=== PATIENT | male | born 1990 | race Caucasian/White ===

== ENCOUNTER → 2017-08-25 | Emergency (ER) | payer OTHER ==
[~2017-08-25] VITALS: Ht 177.8 cm; Wt 90.7 kg
[~2017-08-25] MED LIST: CIPRO500 MG PO; CIPROFLOXACIN500 MG PO; FIBER350 GM; HYDROCODON-ACE1 EA11 PO; IBUPROFEN600 MG PO; LOMOTIL TABLET1 EACH PO; METRONIDAZOLE500 MG PO; NORCO 5-325 TA1 EACH PO; OMEPRAZOLE20 MG PO; PERCOCET 7.5-31 EACH PO; PHENADOZ25 MG PR; PROMETHAZINE HC25 M1 PO; PROTONIX40 MG PO; REGLAN10 MG PO; SOMA350 MG PO; TRAMADOL HCL50 MG PO; ZOFRAN ODT4 MG SL
== END ==
LOC: ED 04:48
DX: K52.9 Noninfective gastroenteritis and colitis, unspecified (principal); Z87.891 Personal history of nicotine dependence; Z90.49 Acquired absence of other specified parts of digestive tract; Z90.89 Acquired absence of other organs; Z79.899 Other long term (current) drug therapy
CPT/HCPCS: 80053; 85025; 96361; 96374; 96375; 99283; J1170; J2405; J7030

== ENCOUNTER 2017-12-27 05:45 | Day surgery (SDC) | payer OTHER ==
[~2017-12-27] VITALS: Ht 177.8 cm; Wt 92.5 kg
--- NOTE | 2017-12-27 08:16 | NUR ---
12/27/17 0816 Loyda Castillo 0801 PT ARRIVED IN PACU WITH ORAL AIRWAY IN PLACE. ANESTHESIA AT BEDSIDE REMOVING AIRWAY AND SUCTIONING OUT MOUTH. 0805 PT AWAKE TALKING NON-STOP TO STAFF. NO C/O'S PAIN. 0816 C/O R HAND PAIN 03/07.
--- NOTE | 2017-12-27 09:09 | NUR ---
PATIENT ON ROOM AIR WITH SATS 97%. PATIENT UP TO AMBULATE INDEPENDANTLY TO BATHROOM TO VOID. PATIENT TOLERATED P.O. INTAKE WELL, GIVEN 100MG TRAMADOL FOR 6/10 RIGHT HAND PAIN. HAND IS ELEVATED ON PILLOW WITH ICE.
--- NOTE | 2017-12-27 10:35 | NUR ---
PATIENT MET DISCHAGE PARAMETERS, DISCHARGE PAPERS GIVEN/UNDERSTOOD. PATIENT AMBULATED WITH NURSE TO FRONT DOOR. MOM TRANSPORTED PATIENT HOME.
--- NOTE | 2017-12-27 10:43 | NUR ---
IN TO SEE PT, PT STATES HE IS READY TO GO HOME. DR. ALEMAN PREVIOUSLY IN ROOM, NO FURTHER QUESTION. IV DC'D. PT DRESSED WITH MOTHER AT BEDSIDE, TOLERATED WELL. PT AMBULATED OUT OF DEPARTMENT WITH RN AND MOTHER. TOLERATED WELL.
--- NOTE | 2017-12-29 07:13 | OR ---
[facility] [address] [facility] [place], [place] [address] Signed DATE OF OPERATION: 12/27/2017 SURGEON: Cirilo Heredia MD PREOPERATIVE DIAGNOSIS: Painful retained hardware, right 4th metacarpal. POSTOPERATIVE DIAGNOSIS: Painful retained hardware, right 4th metacarpal. PROCEDURE: Hardware removal, right 4th metacarpal plate and screws. ANESTHESIA: General. SPECIMENS AND COMPLICATIONS: There were no specimens or complications. TOURNIQUET TIME: About 20 minutes. The hardware was processed and given to the patient per his request. WHAT WAS DONE: The patient was taken to the operating room. After anesthesia was induced and airway secured, the patient was positioned, prepped and draped in a routine sterile fashion. Using the old scar as a guide, a dorsal incision was made through skin only. Subcutaneous tissue was bluntly spread. The extensor tendon was identified and retracted in an ulnar direction. The plate was then exposed using the dental pick tool, each of the screws was backed out without any difficulty and the plate was removed. The screw holes were gently curetted. The wound was irrigated and then closed in a standard fashion. A sterile dressing was applied. The patient was awakened and taken to the recovery room where he arrived in stable condition. Counts were correct and antibiotic protocols were followed. Cirilo Heredia MD Electronically Signed By: CIRILO HEREDIA MD 12/29/17 0713 PATIENT NAME: CAROLA COFFMAN OPERATIVE REPORT DATE OF : 89 REPORT #: [id number] PHYSICIAN: CIRILO HEREDIA MD PCP: JESSE CAPUTO PAC REPORT IS CONFIDENTIAL AND NOT TO BE RELEASED WITHOUT AUTHORIZATION [address] [place] [address] Signed [facility] /[id number] Copies: ~ Electronically Signed By: CIRILO HEREDIA MD 12/29/17 0713 PATIENT NAME: CAROLA COFFMAN OPERATIVE REPORT DATE OF : [birth year] REPORT #: [id number] PHYSICIAN: CIRILO HEREDIA MD PCP: JESSE CAPUTO PAC REPORT IS CONFIDENTIAL AND NOT TO BE RELEASED WITHOUT AUTHORIZATION
== END 2017-12-27 10:35 | disposition home or self-care (01) ==
LOC: DS 05:45 → OPS 05:45 → DS 06:45 → OPS 10:35
PROVIDERS: Orthopaedic Surgery
PROC: 0PPP04Z Removal of Internal Fixation Device from Right Metacarpal, Open Approach (ICD-10-PCS; principal; 2017-12-27 06:45)
DX: T84.84XA Pain due to internal orthopedic prosthetic devices, implants and grafts, initial encounter (principal); J45.909 Unspecified asthma, uncomplicated; F17.200 Nicotine dependence, unspecified, uncomplicated; Z79.899 Other long term (current) drug therapy
CPT/HCPCS: 01820; 94640; J0690; J1100; J1885; J2250; J2405; J2704; J3010; J7120

== ENCOUNTER → 2019-08-15 | Emergency (ER) | payer OTHER ==
[~2019-08-15] VITALS: Ht 177.8 cm; Wt 92.5 kg
[~2019-08-15] MED LIST changes: +NEOMYCIN-POLYMY10 ML OTIC; +PAIN RELIEF500 M1 PO; +VIRTUSSIN AC W473 ML PO
--- OUTSIDE RECORDS SUMMARY | ~2019-08-15 | XMS | Encounter Summary ---
Demographics + + + | Address | [address] | | | [place] [address] | + + + | Home Phone | | + + + | Preferred Language | Unknown | + + + | Marital Status | Single | + + + | Oriental Orthodox Affiliation | Unknown | + + + | Race | Unknown | + + + | Ethnic Group | Unknown | + + + Author + + + | Author | [facility] | | | and Ghulamana | + + + | Organization | [facility] | | | and Ghulamana | + + + | Address | Unknown | + + + | Phone | Unavailable | + + + Support + + + + + | Name | Relationship | Address | Phone | + + + + + | Amina Chacon | CHARLENE | [place] | | | | | [address] | | + + + + + Care Team Providers + +------+ + | Care Hedis Nurse Name | Role | Phone | + +------+ + | Cyn Lim | PCP | | | PA | | | + +------+ + Reason for Visit + + + | Reason | Comments | + + + | Appointment | Patient is a no show for today | + + + Encounter Details +--------+ + + + + | Date | Type | Department | Care Team | Description | +--------+ + + + + | 10/26/ | Telephone | [facility] | Tom Mullen MD | Appointment (Patient | | 2018 | | GASTROENTEROLOGY | [address], [place] | is a no show for | | | | [address] [place] | [address] [place] | today) | | | | [address] | [address] | | | | | [address] | | | | | | [phone] | | | +--------+ + + + + Social History + +-------+ +--------+------+ | Tobacco Use | Types | Packs/Day | Years | Date | | | | | Used | | + +-------+ +--------+------+ | Never Smoker | | | | | + +-------+ +--------+------+ + +---+---+---+ | Smokeless Tobacco: | | | | | Never Used | | | | + +---+---+---+ + + +---------+ + | Alcohol Use | Drinks/Week | oz/Week | Comments | + + +---------+ + | No | | | | + + +---------+ + + + + | Sex Assigned at | Date Recorded | | | | + + + | Not on file | | + + + + + + + | Job Start Date | Occupation | Industry | + + + + | Not on file | Not on file | Not on file | + + + + + + + + | Travel History | Travel Start | Travel End | + + + + + + | No recent travel history available. | + + documented as of this encounter Plan of Treatment Not on filedocumented as of this encounter Visit Diagnoses Not on filedocumented in this encounter"
--- OUTSIDE RECORDS SUMMARY | ~2019-08-15 | XMS | Encounter Summary ---
Demographics + + + | Address | [address] | | | [place] [address] | + + + | Home Phone | | + + + | Preferred Language | Unknown | + + + | Marital Status | Single | + + + | Anabaptist Affiliation | Unknown | + + + | Race | Unknown | + + + | Ethnic Group | Unknown | + + + Author + + + | Author | [facility] | | | and Ghulamana | + + + | Organization | [facility] | | | and Ghulamana | + + + | Address | Unknown | + + + | Phone | Unavailable | + + + Support + + + + + | Name | Relationship | Address | Phone | + + + + + | Amina Chacon | CHARLENE | [place] | | | | | [address] | | + + + + + Care Team Providers + +------+ + | Care Boat Cleaner Name | Role | Phone | + [...] 2018 | | GASTROENTEROLOGY | [address], [place] | | | | | [address] [place] | [address] [place], [place] | | | | | [address] [place], [place] | [address] | | | | | [address] | | | | | | [phone] | | | +--------+ + + + [...]
--- OUTSIDE RECORDS SUMMARY | ~2019-08-15 | XMS | Clinical Summary ---
Demographics + + + | Address | [address] | | | [place] [address] | + + + | Home Phone | | + + + | Preferred Language | Unknown | + + + | Marital Status | Single | + + + | Jain Affiliation | Unknown | + + + | Race | Unknown | + + + | Ethnic Group | Unknown | + + + Author + + + | Author | [facility] | | | and Ghulamana | + + + | Organization | [facility] | | | and Ghulam[place] | + + + | Address | Unknown | + + + | Phone | Unavailable | + + + Support + + + + + | Name | Relationship | Address | Phone | + + + + + | Amina Chacon | CHARLENE | [place] | | | | | [address] | | + + + + + Care Team Providers + +------+ + | Care Cattle Inspector Name | Role | Phone | + +------+ + | Cyn Lim | PCP | | | [place] | | | + +------+ + Allergies No Known Allergies Medications + + + +---------+------+------+-------+ | Medication | Sig | Dispensed | Refills | Star | End | Statu | | | | | | t | Date | s | | | | | | Date | | | + + + +---------+------+------+-------+ | EPINEPHrine | Inject 0.3 mg into | | 0 | | | Activ | | auto-injector 0.3 | the muscle as needed | | | | | e | | mg/0.3 mL injection | for Anaphylaxis. | | | | | | + + + +---------+------+------+-------+ | omeprazole | Take 40 mg by mouth | | 0 | | | Activ | | (PRILOSEC) 40 MG | every morning | | | | | e | | capsule | (before breakfast). | | | | | | + + + +---------+------+------+-------+ Active Problems Not on file Family History + + +-------+ + | Medical History | Relation | Name | Comments | + + +-------+ + | Aneurysm | Father | | | + + +-------+ + | Crohn's disease | Other | | Family history | + + +-------+ + | Aneurysm | Other | uncle | | + + +-------+ + + +-------+--------+ + | Relation | Name | Status | Comments | + +-------+--------+ + | Father | | | | + +-------+--------+ + | Other | | | | + +-------+--------+ + | Other | uncle | Alive | | + +-------+--------+ + Social History + +-------+ +--------+------+ | [...] recent travel history available. | + + Last Filed Vital Signs + + + [...] | | + + + + + Plan of Treatment + + + + + | Health Maintenance | Due Date | Last Done | Comments | + + + + + | Vaccine: | | | | | Dtap/Tdap/Td (1 - | 9 | | | | Tdap) | | | | + + + + + | Vaccine: Influenza | | | | | (#1) | 9 | | | + + + + + Results Not on filefrom Last 3 Months Insurance +-------+--------+ +--------+ + +------+ | Payer | Benefi | Subscriber | Effect | Phone | Address | Type | | | t Plan | ID | tawanna | | | | | | / | | Dates | | | | | | Group | | | | | | +-------+--------+ +--------+ + +------+ | MODA | MODA | [id number] | 08/29/19 | [phone] | [address] | PPO | | | [place]FFINI | | 18-Pre | 9 | [address] | | | | [place] | | sent | | [place], | | | | [place] | | | | [place] [address] | | | | STONE | | | | | | | | EPO | | | | | | +-------+--------+ +--------+ + +------+ + +--------+ +--------+ + + | Guarantor Name | Accoun | Relation to | Date | Phone | Billing Address | | | t Type | Patient | of | | | | | | | | | | + +--------+ +--------+ + + | Carmen Chacon | Person | Self [birth year] [address] | | | al/Fam | | 1990 | [phone] | [address] [place] | | | brandin | | | [address] (Home) | [address] | + +--------+ +--------+ + + Advance Directives + + + + + | Type | Date Recorded | Patient | Explanation | | | | Solutions Executive Cloud Sales | | + + + + + | Power of | | | | | Associate Professor Of Art | | | | + + + + + | Advance | | | | | Directive | | | | + + + + +
--- OUTSIDE RECORDS SUMMARY | ~2019-08-15 | XMS | Encounter Summary ---
Demographics + + + | Address | [address] | | | [place] [address] | + + + | Home Phone | | + + + | Preferred Language | Unknown | + + + | Marital Status | Single | + + + | Baptism Affiliation | Unknown | + + + | Race | Unknown | + + + | Ethnic Group | Unknown | + + + Author + + + | Author | [facility] | | | and Ghulamana | + + + | Organization | [facility] | | | and Ghulam[place] | + + + | Address | Unknown | + + + | Phone | Unavailable | + + + Support + + + + + | Name | Relationship | Address | Phone | + + + + + | Amina Chacon | CHARLENE | [place] | | | | | [address] | | + + + + + Care Team Providers + +------+ + | Care Assembler Surgical Garment Name | Role | Phone | + +------+ + | Cyn Lim | PCP | | | [place] | | | + +------+ + Reason for Visit + + + | Reason | Comments | + + + | Appointment | [facility] | + + + Encounter Details +--------+ + + + + | Date | Type | Department | Care Team | Description | +--------+ + + + + | 10/17/ | Telephone | [facility] | Tom Mullen MD | Appointment | | 2018 | | GASTROENTEROLOGY | [address], [place] | (Pill[facility]) | | | | [address] [place] | [address] [place], [place] | | | | | [address] [place], [place] | [address] | | | | | [address] | | | | | | [phone] | | | +--------+ + + + [...]
--- OUTSIDE RECORDS SUMMARY | ~2019-08-15 | XMS | Encounter Summary ---
Demographics + + + | Address | [address] | | | [place] [address] | + + + | Home Phone | | + + + | Preferred Language | Unknown | + + + | Marital Status | Single | + + + | Hindu Affiliation | Unknown | + + + | Race | Unknown | + + + | Ethnic Group | Unknown | + + + Author + + + | Author | [facility] | | | and Ghulamana | + + + | Organization | [facility] | | | and Ghulam[place] | + + + | Address | Unknown | + + + | Phone | Unavailable | + + + Support + + + + + | Name | Relationship | Address | Phone | + + + + + | Amina Chacon | CHARLENE | [place] | | | | | [address] | | + + + + + Care Team Providers + +------+ + | Care Banker Mason Name | Role | Phone | + [...] diarrhea | [address] | [address], | | | | | Generalized | [address] | [place] [address] | | | | | abdominal | [place], [place] | [place], | | | | | pain | [address] | [place] [address] | | | | | Procedures | Phone: | Phone: | | | | | [facility] | [phone] | [phone] | | | | | INTRALUMINAL | Fax: | Fax: | | | | | | [phone] | [phone] | | | | | ESOPHAGUS-[place] | [...] + + | 10/03/ | Telephone | [facility] | Wolf Flores MD | Referral (Pillcam) | | 2018 | | GASTROENTEROLOGY | [address] [facility] [place] | | | | | [address] [facility] | [place], [place] | | | | | [address] [place], [place] | [address] | | | | | [address] | [phone] | | | | | [phone] | | | +--------+ + + + [...]
--- OUTSIDE RECORDS SUMMARY | 2019-08-15 07:06 | XMS ---
PreManage Notification: CAROLA COFFMAN Security Heart Specialist Events No recent Security Events currently on file CRITERIA MET - [place] [facility] - 2 Visits in 30 Days CARE PROVIDERS Rex Mendoza MD Primary Care Current PHONE: Unknown Mayito has no Care Guidelines for this patient. E.DDania VISIT COUNT (12 MO[address] 3 [facility] TOTAL 3 NOTE: Visits indicate total known visits. 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
== END ==
LOC: ED 07:03
DX: J11.1 Influenza due to unidentified influenza virus with other respiratory manifestations (principal); H60.92 Unspecified otitis externa, left ear
CPT/HCPCS: 99283

== ENCOUNTER 2019-08-20 03:16 | Emergency (ER) | payer OTHER ==
[~2019-08-20] VITALS: Ht 177.8 cm; Wt 92.5 kg
--- OUTSIDE RECORDS SUMMARY | ~2019-08-20 | XMS | Encounter Summary ---
Demographics + + + | Address | [address] | | | [place] [address] | + + + | Home Phone | | + + + | Preferred Language | Unknown | + + + | Marital Status | Single | + + + | Episcopal Affiliation | Unknown | + + + | Race | Unknown | + + + | Ethnic Group | Unknown | + + + Author + + + | Author | [facility] | | | and Ghulamana | + + + | Organization | [facility] | | | and Gh[place] | + + + | Address | Unknown | + + + | Phone | Unavailable | + + + Support + + + + + | Name | Relationship | Address | Phone | + + + + + | Amina Chacon | CHARLENE | [place] | | | | | [address] | | + + + + + Care Team Providers + +------+ + | Care Cook Helper Vegetable Name | Role | Phone | + +------+ + | Cyn Lim | PCP | | | PA | | | + +------+ + Encounter Details +--------+ + + + + | Date | Type | Department | Care Team | Description | +--------+ + + + + | 10/17/ | Abstract | [facility] [place] | Tom Mullen MD | | | 2018 | | GASTROENTEROLOGY | [address], [place] | | | | | [address] [place] | [address] [place], [place] | | | | | [address] [place], [place] | [address] | | | | | [address] | | | | | | [phone] | | | +--------+ + + + [...] + + documented as of this encounter Last Filed Vital Signs + + + + + | Vital Sign | Reading | Time Taken | Comments | + + + + + | Blood Pressure | - | - | | + + + + + | Pulse | - | - | | + + + + + | Temperature | - | - | | + + + + + | Respiratory Rate | - | - | | + + + + + | Oxygen Saturation | - | - | | + + + + + | Inhaled Oxygen | - | - | | | Concentration | | | | + + + + + | Weight | 95.7 kg (211 lb) | 10/17/2017 11:39 AM | | | | | PST | | + + + + + | Height | 177.8 cm (5' 10") | 10/17/2017 11:39 AM | | | | | PST | | + + + + + | Body Mass Index | 30.28 | 10/17/2017 11:39 AM | | | | | PST | | + + + + + documented in this encounter Plan of Treatment Not on filedocumented as of this encounter Visit Diagnoses Not on filedocumented in this encounter
--- OUTSIDE RECORDS SUMMARY | ~2019-08-20 | XMS | Encounter Summary ---
Demographics + + + | Address | [address] | | | [place] [address] | + + + | Home Phone | | + + + | Preferred Language | Unknown | + + + | Marital Status | Single | + + + | Islam Affiliation | Unknown | + + + | Race | Unknown | + + + | Ethnic Group | Unknown | + + + Author + + + | Author | [facility] | | | and Ghulamana | + + + | Organization | [facility] | | | and Ghulamana | + + + | Address | Unknown | + + + | Phone | Unavailable | + + + Support + + + + + | Name | Relationship | Address | Phone | + + + + + | Amina Chacon | CHARLENE | [place] | | | | | [address] | | + + + + + Care Team Providers + +------+ + | Care Hot Mill Operator Name | Role | Phone | + +------+ + | Cyn Lim | PCP | | | [place] | | | + +------+ + Reason for Referral Evaluate & Treat (Routine) +--------+ + + + + + | Status | Reason | Specialty | Diagnoses / | Referred By | Referred To | | | | | Procedures | Contact | Contact | +--------+ + + + + + | Closed | Specialty | Gastroenterol | Diagnoses | Mark, | [place], | | | Services | ogy | Bloody | MD oWlf | Tom Chen MD | | | Required | | diarrhea | [address] | [address], | | | | | Generalized | [address] | [place] [address] | | | | | abdominal | [place], [place] | [place], | | | | | pain | [address] | [place] [address] | | | | | Procedures | Phone: | Phone: | | | | | [facility] | [phone] | [phone] | | | | | INTRALUMINAL | Fax: | Fax: | | | | | | [phone] | [phone] | | | | | ESOPHAGUS-[place] | | | | | | | EUM W/I&R | | | +--------+ + + + + + Reason for Visit + + + | Reason | Comments | + + + | Referral | Pillcam | + + + Encounter Details +--------+ + + + + | Date | Type | Department | Care Team | Description | +--------+ + + + + | 10/03/ | Telephone | [facility] | Wolf Flores MD | Referral (Pillcam) | | 2018 | | GASTROENTEROLOGY | [address] [facility] | | | | | [address] [facility] | [place], [place] | | | | | [address] [place], [place] | [address] | | | | | [address] | [phone] | | | | | [phone] | | | +--------+ + + + + Social History + +-------+ +--------+------+ | Tobacco Use | Types | Packs/Day | Years | Date | | | | | Used | | + +-------+ +--------+------+ | Never Assessed | | | | | + +-------+ +--------+------+ + + + | Sex Assigned at [...] as of this encounter Plan of Treatment + + +--------+ + + | Name | Type | Priori | Associated Diagnoses | Order Schedule | | | | ty | | | + + +--------+ + + | Ambulatory referral | Outpatient | Routin | Bloody diarrhea | Expected: 10/17/2017 | | to Gastroenterology | Referral | e | Generalized | (Approximate), | | (elsy) | | | abdominal pain | Expires: 10/03/2018 | + + +--------+ + + documented as of this encounter Visit Diagnoses + + | Diagnosis | + + | Bloody diarrhea - Primary Diarrhea | + + | Generalized abdominal pain Abdominal pain, generalized | + + documented in this encounter"
--- OUTSIDE RECORDS SUMMARY | ~2019-08-20 | XMS | Encounter Summary ---
Demographics + + + | Address | [address] | | | [place] [address] | + + + | Home Phone | | + + + | Preferred Language | Unknown | + + + | Marital Status | Single | + + + | Yazdanism Affiliation | Unknown | + + + | Race | Unknown | + + + | Ethnic Group | Unknown | + + + Author + + + | Author | [facility] | | | and Ghulamana | + + + | Organization | [facility] | | | and Ghulam[place] | + + + | Address | Unknown | + + + | Phone | Unavailable | + + + Support + + + + + | Name | Relationship | Address | Phone | + + + + + | Amina Chacon | CHARELNE | [place] | | | | | [address] | | + + + + + Care Team Providers + +------+ + | Care Junior Database Administrator Name | Role | Phone | + [...] + + | 10/26/ | Telephone | [facility] | Tom Mullen MD | Appointment (Patient | | 2018 | | GASTROENTEROLOGY | [address], [place] | is a no show for | | | | [address] [place] | [address] [place] | today) | | | | [address] | [address] | | | | | [address] | | | | | | [phone] | | | +--------+ + + + [...]
--- OUTSIDE RECORDS SUMMARY | ~2019-08-20 | XMS | Encounter Summary ---
Demographics + + + | Address | [address] | | | [place] [address] | + + + | Home Phone | | + + + | Preferred Language | Unknown | + + + | Marital Status | Single | + + + | Caodaism Affiliation | Unknown | + + + | Race | Unknown | + + + | Ethnic Group | Unknown | + + + Author + + + | Author | [facility] | | | and Ghulamana | + + + | Organization | [facility] | | | and Ghulam[place] | + + + | Address | Unknown | + + + | Phone | Unavailable | + + + Support + + + + + | Name | Relationship | Address | Phone | + + + + + | Amina Chacon | CHARLENE | [place] | | | | | [address] | | + + + + + Care Team Providers + +------+ + | Care Director Compensation Name | Role | Phone | + [...] Services | ogy | Bloody | MD Wolf | Tom Chen MD | | | Required | | diarrhea | [address] | [address], | | | | | [address]ized | [address] | [place] [address] | | | | | abdominal | [place], [place] | [place], | | | | | pain | [address] | [place] [address] | | | | | Procedures | Phone: | Phone: | | | | | [facility] | [phone] | [phone] | | | | | INTRALUMINAL | Fax: | Fax: | | | | | | [phone] | [phone] | | | | | ESOPHAGUS-[place] | [...] + + | 10/03/ | Telephone | [facility] | Wolf Flores MD | Referral (Pillcam) | | 2018 | | GASTROENTEROLOGY | [address] [facility] | | | | | [address] [facility] | [place], [place] | | | | | [address] [place], [place] | [address] | | | | | [address] | [phone] | | | | | [phone] | | | +--------+ + + + [...]
--- OUTSIDE RECORDS SUMMARY | ~2019-08-20 | XMS | Encounter Summary ---
Demographics + + + | Address | [address] | | | [place] [address] | + + + | Home Phone | | + + + | Preferred Language | Unknown | + + + | Marital Status | Single | + + + | Quaker Affiliation | Unknown | + + + | Race | Unknown | + + + | Ethnic Group | Unknown | + + + Author + + + | Author | [facility] | | | and Ghulamana | + + + | Organization | [facility] | | | and Ghulamana | + + + | Address | Unknown | + + + | Phone | Unavailable | + + + Support + + + + + | Name | Relationship | Address | Phone | + + + + + | Amina Chacon | CHARLENE | [place] | | | | | [address] | | + + + + + Care Team Providers + +------+ + | Care Display Coordinator Name | Role | Phone | + [...] 2018 | | GASTROENTEROLOGY | [address], [place] | ([facility]) | | | | [address] [place] | [address] [place], [place] | | | | | [address] [place], [place] | [address] | | | | | [address] | | | | | | [phone] | | | +--------+ + + + [...]
--- OUTSIDE RECORDS SUMMARY | ~2019-08-20 | XMS | Clinical Summary ---
Demographics + + + | Address | [address] | | | [place] [address] | + + + | Home Phone [...] Author + + + | Author | [facility] | | | and Ghulamana | + + + | Organization | [facility] | | | and Ghulamana | + + + | Address | Unknown | + + + | Phone | Unavailable | + + + Support + + + + + | Name | Relationship | Address | Phone | + + + + + | Amina Chacon | CHARLENE | [place] | | | | | [address] | | + + + + + Care Team Providers + +------+ + | Care Assistant Professor Of Chemistry Name | Role | Phone | + [...] | | | Dtap/Tdap/Td (1 - | 1 | | | | Tdap) | | [...] + +------+ | MODA | MODA | [id number] | 08/29/19 | [phone] | [address] | PPO | | | AFFINI | | 18-Pre | 9 | [phone] | | | | [place] | | sent | | [place]MP[place], | | | | [place] | | | | [place] [address] | | | | STONE | | [...] brandin | | | 0 (Home) | [address] | + +--------+ +--------+ + + Advance Directives + + + + + | Type | Date Recorded | Patient | Explanation | | | | Network Pricing Consultant | | + + + + + | Power of | | | | | Global Sales Manager | | | | + + + + + | Advance | | | | | Directive | | | | + + + + +
--- OUTSIDE RECORDS SUMMARY | ~2019-08-20 | XMS | Encounter Summary ---
Demographics + + + | Address | [address] | | | [place] [address] | + + + | Home Phone | | + + + | Preferred Language | Unknown | + + + | Marital Status | Single | + + + | Yazdanism Affiliation | Unknown | + + + | Race | Unknown | + + + | Ethnic Group | Unknown | + + + Author + + + | Author | [facility] | | | and Ghulamana | + + + | Organization | [facility] | | | and Ghulamana | + + + | Address | Unknown | + + + | Phone | Unavailable | + + + Support + + + + + | Name | Relationship | Address | Phone | + + + + + | Amina Chacon | CHARLENE | [place] | | | | | [address] | | + + + + + Care Team Providers + +------+ + | Care Tea Tree Farm Worker Name | Role | Phone | + [...] 2018 | | GASTROENTEROLOGY | [address], [place] | ([facility]) | | | | [address] [place] | [address] [place], [place] | | | | | [address] [place], [place] | [address] | | | | | [address] | | | | | | [phone] | | | +--------+ + + + [...]
--- OUTSIDE RECORDS SUMMARY | ~2019-08-20 | XMS | Clinical Summary ---
Demographics + + + | Address | [address] | | | [place] [address] | + + + | Home Phone | | + + + | Preferred Language | Unknown | + + + | Marital Status | Single | + + + | Christian Affiliation | Unknown | + + + | Race | Unknown | + + + | Ethnic Group | Unknown | + + + Author + + + | Author | [facility] | | | and Ghulamana | + + + | Organization | [facility] | | | and Ghulam[place] | + + + | Address | Unknown | + + + | Phone | Unavailable | + + + Support + + + + + | Name | Relationship | Address | Phone | + + + + + | Amina Chacon | CHARLENE | [place] | | | | | [address] | | + + + + + Care Team Providers + +------+ + | Care Associate Director Finance Name | Role | Phone | + [...] + +------+ | MODA | MODA | [id number] | 08/29/19 | [phone] | [address] | PPO | | | [place]FF[place]I | | 18-Pre | 9 | [phone] | | | | [place] | | sent | | [place], | | | | [place] | | | | [place] [address] | | | | STONE | | [...] brandin | | | 0 (Home) | [address] | + +--------+ +--------+ + + Advance Directives + + + + + | Type | Date Recorded | Patient | Explanation | | | | Heating Element Winder | | + + + + + | Power of | | | | | Heavy Equipment Service Manager | | | | + + + + + | Advance | | | | | Directive | | | | + + + + +
--- OUTSIDE RECORDS SUMMARY | ~2019-08-20 | XMS | Encounter Summary ---
Demographics + + + | Address | [address] | | | [place] [address] | + + + | Home Phone | | + + + | Preferred Language | Unknown | + + + | Marital Status | Single | + + + | Restoration Affiliation | Unknown | + + + | Race | Unknown | + + + | Ethnic Group | Unknown | + + + Author + + + | Author | [facility] | | | and Ghulamana | + + + | Organization | [facility] | | | and Ghulamana | + + + | Address | Unknown | + + + | Phone | Unavailable | + + + Support + + + + + | Name | Relationship | Address | Phone | + + + + + | Amina Chacon | CHARLENE | [place] | | | | | [address] | | + + + + + Care Team Providers + +------+ + | Care Riveting Machine Operator Automatic Name | Role | Phone | + [...] + + | 10/26/ | Telephone | [facility] | Tom Mullen MD | Appointment (Patient | | 2018 | | GASTROENTEROLOGY | [address], [place] | is a no show for | | | | [address] [place] | [address] [place] | today) | | | | [address] [place] | [address] | | | | | [address] | | | | | | [phone] | | | +--------+ + + + [...]
--- OUTSIDE RECORDS SUMMARY | ~2019-08-20 | XMS | Encounter Summary ---
Demographics + + + | Address | [address] | | | [place] [address] | + + + | Home Phone | | + + + | Preferred Language | Unknown | + + + | Marital Status | Single | + + + | Hinduism Affiliation | Unknown | + + + | Race | Unknown | + + + | Ethnic Group | Unknown | + + + Author + + + | Author | [facility] | | | and Ghulamana | + + + | Organization | [facility] | | | and Ghulam[place] | + + + | Address | Unknown | + + + | Phone | Unavailable | + + + Support + + + + + | Name | Relationship | Address | Phone | + + + + + | Amina Chacon | CHARLENE | [place] | | | | | [address] | | + + + + + Care Team Providers + +------+ + | Care Script Developer Name | Role | Phone | + [...] 2018 | | GASTROENTEROLOGY | [address], [place] | | | | | [address] [place] | [address] [place], [place] | | | | | [address] [place], [place] | [address] | | | | | [address] | | | | | | [phone] | | | +--------+ + + + [...]
--- OUTSIDE RECORDS SUMMARY | ~2019-08-20 | XMS | Encounter Summary ---
Demographics + + + | Address | [address] | | | [place] [address] | + + + | Home Phone | | + + + | Preferred Language | Unknown | + + + | Marital Status | Single | + + + | Synagogue Affiliation | Unknown | + + + | Race | Unknown | + + + | Ethnic Group | Unknown | + + + Author + + + | Author | [facility] | | | and Ghulamana | + + + | Organization | [facility] | | | and Ghulamana | + + + | Address | Unknown | + + + | Phone | Unavailable | + + + Support + + + + + | Name | Relationship | Address | Phone | + + + + + | Amina Chacon | CHARLENE | [place] | | | | | [address] | | + + + + + Care Team Providers + +------+ + | Care Professor Of Genetics Name | Role | Phone | + +------+ + | Cyn Lim | PCP | | | [place] | | | + +------+ + Reason for Referral Diagnostic/Screening (Routine) +--------+--------+ + + + + | Status | Reason | Specialty | Diagnoses / | Referred By | Referred To | | | | | Procedures | Contact | Contact | +--------+--------+ + + + + | Denied | | Radiology | Diagnoses | Kenneth Wheeler | [address] | | | | | Diarrhea, | Min, MD [address] | [address] | | | | | unspecified | [address] | [place], | | | | | type | [place] | [place] [address] | | | | | Procedures | [place], [place] | Phone: | | | | | [place] | [address] | [phone] | | | | | Enterography | Phone: | Fax: | | | | | CT Abdomen | [phone] | [phone] | | | | | Pelvis w | Fax: | | | | | | Contrast | [phone] | | +--------+--------+ + + + + Reason for Visit Diagnostic/Screening (Routine) +--------+--------+ + + + + | Status | Reason | Specialty | Diagnoses / | Referred By | Referred To | | | | | Procedures | Contact | Contact | +--------+--------+ + + + + | Denied | | Radiology | Diagnoses | Wheeler, Siew | [address] | | | | | Diarrhea, | Min, MD [address] | [address] | | | | | unspecified | [address] | [place], | | | | | type | [place] | [place] [address] | | | | | Procedures | [place], [place] | Phone: | | | | | [place] | [address] | [phone] | | | | | Enterography | Phone: | Fax: | | | | | CT Abdomen | [phone] | [phone] | | | | | Pelvis w | Fax: | | | | | | Contrast | [phone] | | +--------+--------+ + + + + Encounter Details +--------+ + + + + | Date | Type | Department | Care Team | Description | +--------+ + + + + | 09/30/ | Hospital | [facility] | Kenneth Wheeler MD | Diarrhea, | | 2018 | Encounter | [facility] [address] | [address] | unspecified type | | | | [place], | [place], [place] | | | | | [place] [address] | [address] | | | | | [phone] | [phone] | | | | | | | | +--------+ + + + [...] Not on filedocumented as of this encounter Procedures + +--------+ + + + | Procedure Name | Priori | Date/Time | Associated Diagnosis | Comments | | | ty | | | | + +--------+ + + + | CT ENTEROGRAPHY W | Routin | 09/30/2017 | Diarrhea, | Results for this | | CONTRAST | e | 11:21 AM | unspecified type | procedure are in the | | | | PST | | results section. | + +--------+ + + + documented in this encounter Results CT Enterography (09/30/2017 11:21 AM PST) + + | Specimen | + + | | + + + + + | Narrative | Performed At | + + + | TECHNIQUE: After administration of 85 mL Omnipaque 350 intravenously | [facility] | | and negative oral contrast, axial CT imaging was obtained through | | | the abdomen and pelvis with coronal and sagittal reformats. | | | Enterography protocol utilized. CLINICAL INFORMATION: bloody | | | diarrhea COMPARISON: None available. FINDINGS: LUNGS: | | | Minimal bibasilar atelectasis. BONES: No acute osseous | | | abnormality. No osteoblastic or osteolytic lesion. ABDOMEN/PELVIS: | | | Abdominal wall: Normal. Liver: Normal. Gallbladder: | | | Cholecystectomy changes. Pancreas: Normal. Spleen: Normal. | | | Adrenals: Normal. Kidneys: Normal. Ureters: Normal Urinary | | | Bladder: Normal. Reproductive organs: Normal appearance of the | | | prostate and seminal vesicles. Peritoneum: No ascites or free air. | | | No lymphadenopathy. Retroperitoneum: No lymphadenopathy. Vessels: | | | Normal caliber of the abdominal aorta. BOWEL: Peristalsis: Normal | | | progression of oral contrast with oral contrast noted within the | | | rectum. Bowel wall thickening: Mild to moderate proximal jejunal | | | wall thickening. Skip lesions: None. Vascularity: Normal. | | | Enhancement: Normal. Fistula: None identified. Abscess: None. | | | IMPRESSION - Mild to moderate proximal jejunal wall thickening, may | | | reflect infectious versus inflammatory enteritis. Dictated | | | and Signed by: Otoniel Vanegas MD Electronically signed: 09/30/2017 | | | 2:50 PM | | + + + + + | Procedure Note | + + | Pardeep, Rad Results In - 09/30/2017 2:53 PM PST TECHNIQUE: After administration of 85 | | mL Omnipaque 350 intravenously andnegative oral contrast, axial CT imaging was obtained | | through the abdomen andpelvis with coronal and sagittal reformats. Enterography | | protocol utilized.CLINICAL INFORMATION: bloody diarrheaCOMPARISON: None | | available.FINDINGS: LUNGS: Minimal bibasilar atelectasis.BONES: No acute osseous | | abnormality. No osteoblastic or osteolytic lesion.ABDOMEN/PELVIS:Abdominal wall: | | Normal.Liver: Normal.Gallbladder: Cholecystectomy changes.Pancreas: Normal.Spleen: | | Normal. Adrenals: Normal.Kidneys: Normal. Ureters: Normal Urinary Bladder: Normal. | | Reproductive organs: Normal appearance of the prostate and seminal vesicles.Peritoneum: | | No ascites or free air. No lymphadenopathy. Retroperitoneum: No lymphadenopathy.Vessels: | | Normal caliber of the abdominal aorta.BOWEL:Peristalsis: Normal progression of oral | | contrast with oral contrast noted withinthe rectum. Bowel wall thickening: Mild to | | moderate proximal jejunal wall thickening.Skip lesions: None. Vascularity: Normal. | | Enhancement: Normal. Fistula: None identified.Abscess: None.IMPRESSION - Mild to | | moderate proximal jejunal wall thickening, may reflectinfectious versus inflammatory | | enteritis.Dictated and Signed by: Otoniel Vanegas MD Electronically signed: 09/30/2017 | | 2:50 PM | |Liver: Normal. | |Gallbladder: Cholecystectomy changes. | |Pancreas: Normal. | |Spleen: Normal. | | | |Adrenals: Normal. | |Kidneys: Normal. | |Ureters: Normal | |Urinary Bladder: Normal. | |Reproductive organs: Normal appearance of the prostate and seminal vesicles. | | | |Peritoneum: No ascites or free air. No lymphadenopathy. | |Retroperitoneum: No lymphadenopathy. | |Vessels: Normal caliber of the abdominal aorta. | | | |BOWEL: | |Peristalsis: Normal progression of oral contrast with oral contrast noted within | |the rectum. | |Bowel wall thickening: Mild to moderate proximal jejunal wall thickening. | |Skip lesions: None. | |Vascularity: Normal. | |Enhancement: Normal. | |Fistula: None identified. | |Abscess: None. | | | |IMPRESSION - Mild to moderate proximal jejunal wall thickening, may reflect | |infectious versus inflammatory enteritis. | | | | | | | |Dictated and Signed by: Otoniel Vanegas MD | | Electronically signed: 09/30/2017 2:50 PM | + + + +---------+ + + | Performing | Address | City/State/Zipcode | Phone Number | | Organization | | | | + +---------+ + + | [facility] | | | | + +---------+ + + documented in this encounter Visit Diagnoses + + | Diagnosis | + + | Diarrhea, unspecified type | + + documented in this encounter Administered Medications + +--------+ +--------+------+------+ | Medication Order | MAR | Action | Dose | Rate | Site | | | Action | Date | | | | + +--------+ +--------+------+------+ | iohexol (OMNIPAQUE 350) 350 | Given | 09/30/19 | 85 mLs | | | | mg/mL injection 85 mL 85 mL, | | 18 11:18 | | | | | Intravenous, ONCE PRN, Other, | | AM PST | | | | | Starting 09/30/17 at 1123, For | | | | | | | 1 dose, Radiology | | | | | | + +--------+ +--------+------+------+ +---+---+ | | | +---+---+ documented in this encounter"
--- OUTSIDE RECORDS SUMMARY | ~2019-08-20 | XMS | Encounter Summary ---
Demographics + + + | Address | [address] | | | [place] [address] | + + + | Home Phone | | + + + | Preferred Language | Unknown | + + + | Marital Status | Single | + + + | Hindu Affiliation | Unknown | + + + | Race | Unknown | + + + | Ethnic Group | Unknown | + + + Author + + + | Author | [facility] | | | and Ghulamana | + + + | Organization | [facility] | | | and [place] | + + + | Address | Unknown | + + + | Phone | Unavailable | + + + Support + + + + + | Name | Relationship | Address | Phone | + + + + + | Amina Chacon | CHARLENE | [place] | | | | | [address] | | + + + + + Care Team Providers + +------+ + | Care Health Social Work Professor Name | Role | Phone | + [...] Diarrhea, | Min, MD [address] | [address] | | | | | unspecified | [address] | [place], | | | | | type | [place] | [place] [address] | | | | | Procedures | [place], [place] | Phone: | | | | | [place] | [address] | [phone] | | | | | Enterography | Phone: | Fax: | | | | | CT Abdomen | [phone] | [phone] | | | | | Pelvis w | Fax: | | | | | | Contrast | [phone] | | +--------+--------+ + + + + [...] Diarrhea, | Min, MD [address] | [address] | | | | | unspecified | [address] | [place], | | | | | type | [place] | [place] [address] | | | | | Procedures | [place], [place] | Phone: | | | | | [place] | [address] | [phone] | | | | | Enterography | Phone: | Fax: | | | | | CT Abdomen | [phone] | [phone] | | | | | Pelvis w | Fax: | | | | | | Contrast | [phone] | | +--------+--------+ + + + + Encounter Details +--------+ + + + + | Date | Type | Department | Care Team | Description | +--------+ + + + + | 09/30/ | Hospital | [facility] | Kenneth Wheeler MD | Diarrhea, | | 2018 | Encounter | MED CTR [address] | [address] | unspecified type | | | | [address] [place], | [place], [place] | | | | | [place] [address] | [address] | | | | | [phone] | [phone] | | | | | | | [...]
--- OUTSIDE RECORDS SUMMARY | 2019-08-20 03:18 | XMS ---
PreManage Notification: CAROLA COFFMAN Security Industrial Automation Specialist Events No recent Security Events currently on file CRITERIA MET - [facility] - 2 Visits in 30 Days CARE PROVIDERS JESSE CAPUTO Physician 08/16/2019-Current DONALD PHONE: Unknown Rex Mendoza MD Primary Care Current PHONE: Unknown Mayito has no Care Guidelines for this patient. Baljinder VISIT COUNT (12 MO.) [address] [place] [address] TOTAL 4 NOTE: Visits indicate total known visits. ED/UCC VISIT TRACKING (12 MO.) 08/20/2019 03:17 [facility] [place] TYPE: Emergency COMPLAINT: - EARACHE 08/15/2019 07:04 [facility] [place] TYPE: Emergency COMPLAINT: - FLU- FEELING WORSE DIAGNOSES: - Flu due to unidentified influenza virus w oth resp manifest - Headache - Unspecified otitis externa, left ear 08/13/2019 13:52 [facility] [place] TYPE: Emergency COMPLAINT: - FLU SYMPTOMS DIAGNOSES: - Nausea with vomiting, unspecified - Cough - Diarrhea, unspecified 03/25/2019 00:[address] [facility] [place] TYPE: Emergency COMPLAINT: - VOMITING/CHEST PAIN DIAGNOSES: - Epigastric pain - Other salvage determiner (current) drug therapy - Alcoholic gastritis without bleeding - Alcoholic gastritis without bleeding - Acquired absence of other specified parts of digestive tract INPATIENT VISIT TRACKING (12 MO.) No inpatient visits to display in this time frame [email or web address]
[2019-08-20] MEDS ORDERED: ZOFRAN4 MG PO (03:43)
[2019-08-20] MEDS ORDERED: AMOXICILLIN500 MG PO (03:43)
== END 2019-08-20 05:46 | disposition home or self-care (01) ==
LOC: ED 03:16
DX: J11.1 Influenza due to unidentified influenza virus with other respiratory manifestations (principal); H66.91 Otitis media, unspecified, right ear
CPT/HCPCS: 71046; 96374; 96375; 99283-25; J1885; J2405; J7030

== ENCOUNTER 2021-06-02 02:09 | Emergency (ER) | payer OTHER ==
[~2021-06-02] VITALS: Ht 177.8 cm; Wt 90.7 kg
[~2021-06-02 02:09] MED LIST changes: +AMOXICILLIN500 MG PO; +ZOFRAN4 MG PO
[2021-06-02] MEDS ORDERED: PROZAC20 MG PO (02:21)
[2021-06-02] MEDS ORDERED: ANUSOL-HC25 MG PR (02:43)
[2021-06-02] MEDS ORDERED: ULTRAM50 MG PO (02:43)
== END 2021-06-02 02:55 | disposition home or self-care (01) ==
LOC: ED 02:09
DX: K64.4 Residual hemorrhoidal skin tags (principal); J45.909 Unspecified asthma, uncomplicated; Z79.899 Other long term (current) drug therapy
CPT/HCPCS: 99282

== ENCOUNTER 2021-06-06 03:41 | Emergency (ER) | payer OTHER ==
[~2021-06-06] VITALS: Ht 177.8 cm; Wt 86.2 kg
[~2021-06-06 03:41] MED LIST changes: +ANUSOL-HC25 MG PR; +PROZAC20 MG PO; +ULTRAM50 MG PO
--- OUTSIDE RECORDS SUMMARY | 2021-06-06 04:08 | XMS ---
PreManage Notification: CAROLA COFFMAN Security Marketing Account Executive Events No recent Security Events currently on file CRITERIA MET - [facility] JESSE CAPUTO Physician Shipping Clerk Crating 07/02/2020-Current PHONE: Unknown Mayito has no Care Guidelines for this patient. E.Ricky VISIT COUNT (12 MO.) 1 [facility] Jenna Finney [address] [place] [address] TOTAL 3 NOTE: Visits indicate total known visits. ED/UCC VISIT TRACKING (12 MO.) 06/06/2021 03:42 [facility] TYPE: Emergency COMPLAINT: - ANAL PAIN 06/03/2021 08:47 [facility] Sharmin ABBOTT TYPE: Emergency DIAGNOSES: - Residual hemorrhoidal skin tags - Rectal Pain 06/02/2021 02:10 [facility] Jane TYPE: Emergency COMPLAINT: - RECTAL PAIN DIAGNOSES: - Residual hemorrhoidal skin tags - Unspecified asthma, uncomplicated - Other specified diseases of anus and rectum - Other mcfp (current) drug therapy INPATIENT VISIT TRACKING (12 MO.) No inpatient visits to display in this time frame [id number]
[2021-06-06] MEDS ORDERED: BACTRIM DS TAB1 EACH PO (04:17)
== END 2021-06-06 04:26 | disposition home or self-care (01) ==
LOC: ED 03:41
DX: K64.9 Unspecified hemorrhoids (principal); L02.31 Cutaneous abscess of buttock; L03.317 Cellulitis of buttock; J45.909 Unspecified asthma, uncomplicated; Z79.899 Other long term (current) drug therapy
CPT/HCPCS: 99282

== ENCOUNTER 2022-01-02 19:34 | Emergency (ER) | payer OTHER ==
[~2022-01-02] VITALS: Ht 177.8 cm; Wt 88.8 kg
[~2022-01-02 19:34] MED LIST changes: +BACTRIM DS TAB1 EACH PO
[2022-01-02] MEDS ORDERED: DICLOFENAC SODI75 MG PO (21:49)
== END 2022-01-02 22:50 | disposition home or self-care (01) ==
LOC: ED 19:34
DX: S05.02XA Injury of conjunctiva and corneal abrasion without foreign body, left eye, initial encounter (principal); J45.909 Unspecified asthma, uncomplicated; Z79.899 Other long term (current) drug therapy; X58.XXXA Exposure to other specified factors, initial encounter
CPT/HCPCS: 99283

== ENCOUNTER 2022-02-27 03:41 | Emergency (ER) | payer OTHER ==
[~2022-02-27] VITALS: Ht 177.8 cm; Wt 93.4 kg
[~2022-02-27 03:41] MED LIST changes: +DICLOFENAC SODI75 MG PO
[2022-02-27] MEDS ORDERED: ONDANSETRON ODT8 MG PO (05:37)
== END 2022-02-27 05:48 | disposition home or self-care (01) ==
LOC: ED 03:41
DX: K52.9 Noninfective gastroenteritis and colitis, unspecified (principal); J45.909 Unspecified asthma, uncomplicated; F41.9 Anxiety disorder, unspecified
CPT/HCPCS: 36415; 80053; 81001; 83690; 85025; 96361; 96374; 99284-25; A9270; J2405; J7030

== ENCOUNTER 2022-07-12 20:35 | Emergency (ER) | payer OTHER ==
[~2022-07-12] VITALS: Ht 177.8 cm; Wt 100.0 kg
[~2022-07-12 20:35] MED LIST changes: +ONDANSETRON ODT8 MG PO
== END 2022-07-12 21:50 | disposition home or self-care (01) ==
LOC: ED 20:35
DX: S50.02XA Contusion of left elbow, initial encounter (principal); J45.909 Unspecified asthma, uncomplicated; V00.131A Fall from skateboard, initial encounter
CPT/HCPCS: 73080; 99283-25

== ENCOUNTER 2022-08-01 09:12 | Emergency (ER) | payer OTHER ==
[~2022-08-01] VITALS: Ht 177.8 cm; Wt 98.7 kg
--- OUTSIDE RECORDS SUMMARY | 2022-08-01 09:18 | XMS ---
PreManage Notification: CAROLA COFFMAN Security Crotch Breaker Events No recent Security Events currently on file CRITERIA MET - [facility] - 2 Visits in 30 Days CARE PROVIDERS JESSE CAPUTO Physician On Awake Counselor 08/16/2019-Current PHONE: Unknown Mayito has no Care Guidelines for this patient. Baljinder VISIT COUNT (12 MO[address] [facility] TOTAL 4 NOTE: Visits indicate total known visits. ED/UCC VISIT TRACKING (12 MO.) 08/01/2022 09:12 [facility] [place] TYPE: Emergency COMPLAINT: - THROAT PAIN 07/12/2022 20:36 [facility] [place] TYPE: Emergency COMPLAINT: - LEFT ELBOW INJ DIAGNOSES: - Fall from skateboard, initial encounter - Contusion of left elbow, initial encounter - Other specified soft tissue disorders - Unspecified asthma, uncomplicated 02/27/2022 03:42 [facility] [place] TYPE: Emergency COMPLAINT: - ABD PAIN DIAGNOSES: - Anxiety disorder, unspecified - Unspecified asthma, uncomplicated - Noninfective gastroenteritis and colitis, unspecified - Unspecified abdominal pain 01/02/2022 19:[address] [facility] [place] TYPE: Emergency COMPLAINT: - LT EYE POBLEM DIAGNOSES: - Exposure to other specified factors, initial encounter - Unspecified asthma, uncomplicated - Injury of conjunctiva and corneal abrasion without foreign body, left eye, initial encounter - Other chcf (current) drug therapy - Other specified disorders of eye and adnexa INPATIENT VISIT TRACKING (12 MO.) No inpatient visits to display in this time frame [id number]
[2022-08-01] MEDS ORDERED: BENZONATATE100 MG PO (09:23)
[2022-08-01] MEDS ORDERED: LIDOCAINE HCL100 ML MT (09:23)
[2022-08-01] MEDS ORDERED: PENICILLIN V P500 MG PO (11:21)
== END 2022-08-01 11:39 | disposition home or self-care (01) ==
LOC: ED 09:12
DX: J02.0 Streptococcal pharyngitis (principal); J45.909 Unspecified asthma, uncomplicated; Z79.899 Other long term (current) drug therapy; Z20.822 Contact with and (suspected) exposure to COVID-19
CPT/HCPCS: 87502; 87880; 99283; C9803; U0003

== ENCOUNTER 2022-09-08 23:13 | Emergency (ER) | payer OTHER ==
[~2022-09-08] VITALS: Ht 177.8 cm; Wt 102.4 kg
[~2022-09-08 23:13] MED LIST changes: +BENZONATATE100 MG PO; +LIDOCAINE HCL100 ML MT; +PENICILLIN V P500 MG PO
[2022-09-09] MEDS ORDERED: CIPRO500 MG PO (01:41)
[2022-09-09] MEDS ORDERED: ULTRAM50 MG PO (01:41)
== END 2022-09-09 02:28 | disposition home or self-care (01) ==
LOC: ED 23:13
DX: N50.3 Cyst of epididymis (principal)
CPT/HCPCS: 76870; 96372; 99284-25; A9270; J1170

== ENCOUNTER 2023-08-09 19:06 | Emergency (ER) | payer OTHER ==
[~2023-08-09] VITALS: Ht 177.8 cm; Wt 95.3 kg
[2023-08-09 21:17] LABS: INFLUENZA B NAA NEGATIVE (NEGATIVE); RESPIRATORY SYNCYTIAL VIR NAA NEGATIVE (NEGATIVE)
[2023-08-09 21:53] VITALS: BP 127/83
== END 2023-08-09 21:55 | disposition home or self-care (01) ==
LOC: ED 19:06
PROVIDERS: Internal Medicine
DX: J02.8 Acute pharyngitis due to other specified organisms (principal); B97.89 Other viral agents as the cause of diseases classified elsewhere; Z20.822 Contact with and (suspected) exposure to COVID-19
CPT/HCPCS: 71045; 87502; 87651; 94640; 94664; 99284-25; C9803; U0002

== ENCOUNTER 2023-08-28 09:30 | Emergency (ER) | payer OTHER ==
[~2023-08-28] VITALS: Ht 177.8 cm; Wt 96.5 kg
[~2023-08-28 09:30] MED LIST changes: +MAXITROL EYE DRO5 ML OPTH
--- OUTSIDE RECORDS SUMMARY | 2023-08-28 09:38 | XMS ---
PreManage Notification: CAROLA COFFMAN Security Wash Box Operator Events No recent Security Events currently on file CRITERIA MET - [facility] - 2 Visits in 30 Days CARE PROVIDERS -Chiqui- Dentist: Instructional Systems Specialist [facility] PHONE: [phone] Mayito has no Care Guidelines for this patient. E.Ricky VISIT COUNT (12 MO.) [address] [place] [address] Jenna Finney (Radha Garcia) TOTAL 5 NOTE: Visits indicate total known visits. ED/UCC VISIT TRACKING (12 MO.) 08/28/2023 09:30 [facility] Jane TYPE: Emergency COMPLAINT: - EYE PAIN 08/22/2023 19:25 [facility] [place] TYPE: Emergency COMPLAINT: - EYE PROBLEM DIAGNOSES: - Unspecified conjunctivitis - Unspecified disorder of eye and adnexa 08[facility]2023 08[facility] DIAGNOSES: - Bronchitis, not specified as acute or chronic - Cough - cough, diarrhea, shaky 08/09/2023 19:07 [facility] [place] TYPE: Emergency COMPLAINT: - COLD SYMPTOMS DIAGNOSES: - Acute pharyngitis due to other specified organisms - Acute pharyngitis, unspecified - Contact with and (suspected) exposure to COVID-19 - Other viral agents as the cause of diseases classified elsewhere 09/08/2022 23:13 [facility] [place] TYPE: Emergency COMPLAINT: - TESTICULAR PAIN DIAGNOSES: - Cyst of epididymis - Right testicular pain INPATIENT VISIT TRACKING (12 MO.) No inpatient visits to display in this time frame [id number]
[2023-08-28 10:54] VITALS: BP 140/86
== END 2023-08-28 10:53 | disposition home or self-care (01) ==
LOC: ED 09:30
DX: B30.9 Viral conjunctivitis, unspecified (principal)
CPT/HCPCS: 99283